=== PATIENT | male | born 2000 | race Caucasian/White ===

== ENCOUNTER → 2021-11-06 10:10 | Outpatient (BNVA) | payer OTHER, SELFPAY | PROVIDERS: Family Provider Family Medicine; Visit Provider Nurse Practitioner | DX: Z02.83 Encounter for blood-alcohol and blood-drug test (principal) | CPT/HCPCS: 80307 ==

== ENCOUNTER 2022-10-04 04:50 | Emergency (ER) | payer SELFPAY ==
[2022-10-04 04:55] VITALS: BMI 18.4
--- NOTE | 2022-10-04 04:57 | CTR_ITS ---
PROCEDURE INFORMATION: Exam: CT Abdomen And Pelvis With Contrast Exam date and time: 10/04/2022 5:11 AM Age: 22 years old Clinical indication: Abdominal pain; Generalized; Patient HX: N/v right; Additional info: Abd pain TECHNIQUE: Imaging protocol: Computed tomography of the abdomen and pelvis with contrast. Radiation optimization: All CT scans at this facility use at least one of these dose optimization techniques: automated exposure control; mA and/or kV adjustment per patient size (includes targeted exams where dose is matched to clinical indication); or iterative reconstruction. Contrast material: ONNI 350; Contrast volume: 100 ml; Contrast route: INTRAVENOUS (IV); COMPARISON: No relevant prior studies available. RADIATION DOSE METRICS: Total DLP (mGy-cm): 371.53 FINDINGS: Liver: Mild nonspecific periportal edema. Gallbladder and bile ducts: No acute abnormality. No calcified stones. No ductal dilation. Pancreas: No acute abnormality. No ductal dilation. Spleen: No acute abnormality. Adrenal glands: No significant or acute abnormality. Kidneys and ureters: No acute abnormality. No hydronephrosis. Stomach and bowel: Fluid and ingested contents within stomach. No disproportionate large or small bowel distention. Fluid within distal small bowel with scattered small nonspecific air-fluid levels. Gas and stool within relatively nondistended colon. Appendix: Calcified appendicolith at the appendix base with 10 mm diameter abnormally dilated fluid-filled appendix. Intraperitoneal space: Nonspecific trace free fluid. No free air. Vasculature: No acute abnormality. No abdominal aortic aneurysm. Lymph nodes: Scattered small nonspecific mesenteric lymph nodes. Urinary bladder: Unremarkable as visualized. Reproductive: Unremarkable as visualized. Bones/joints: No acute osseous abnormality. No dislocation. Soft tissues: No significant soft tissue abnormalities. CT/CT abdomen pelvis w con* [id number] IMPRESSION: 1. Calcified appendicolith at the appendix base with 10 mm diameter abnormally dilated fluid-filled appendix. Findings are concerning for possible acute appendicitis. Recommend clinical correlation. 2. Mild reactive ileus versus enteritis. 3. Mild nonspecific periportal edema. Differential diagnosis includes reactive changes versus hepatitis or cholangitis. THIS REPORT CONTAINS FINDINGS THAT MAY BE CRITICAL TO PATIENT CARE. The findings were verbally communicated via telephone conference with Dr Herrera at 5:56 AM SENIOR MARKETING ASSOCIATE on 10/04/2022. The findings were acknowledged and understood.
[2022-10-04 04:59] VITALS: BP 112/93; PULSE 55; RESP 16; TEMP 36.6; O2SAT 100
--- NOTE | 2022-10-04 04:59 | ED_ITS ---
Documented by User: Yessenia Carter MD 10/04/22 05:02 HPI - Abdominal Pain General: Chief Complaint: Abdominal Pain Stated Complaint: abdomen pain Time Seen by Provider: 10/04/22 04:55 Source: patient Mode of arrival: ambulatory Limitations: no limitations History of Present Illness: 22-year-old male states he has been having nausea vomiting throughout the week he states that tonight he started having severe epigastric and right lower quadrant abdominal pain states pain is been an 8 out of 10. He denies any worsening proving factors denies any fevers denies any history abdominal surgery. He does use marijuana. Associated Symptoms: Reports nausea and vomiting; Denies chills, dysuria and fever(s) Review of Systems Const: Denies: fever(s), chills, body aches or change in appetite Eyes: Denies: blurry vision or eye discomfort ENMT: Denies: throat pain or dental pain Card: Denies: chest pain Resp: Denies: dyspnea GI: Reports: abdominal pain, nausea and vomiting : Denies: dysuria Musc: Denies: neck pain or back pain Skin/Breast: Denies: rash Neuro: Denies: headache(s) Psych: Denies: depression Shiva/Lymph: Denies: easy bruising All/Imm: Denies: urticaria PFSH ED PFSH: Medical History Attention-deficit hyperactivity disorder, predominantly inattentive type Generalized anxiety disorder Nicotine vapor product user Psychiatric care Social History Smoking and tobacco status: light tobacco smoker e-cigarettes E-Cigarette Details: vaporizer device and with nicotine E-cig/vape details: weaning off Quit status (tobacco): considering quitting Second hand smoke exposure: No Smoking risk assessment/counseling performed?: No Alcohol intake: current Alcohol intake frequency: holidays/special occasions only Alcohol type: wine Desire information about alcohol rehabilitation?: No Counseling given: No Desire information about substance/drug rehabilitation?: No Counseling given: No Physical Exam Const: COMMON NORMALS: no acute distress, patient oriented x3 and healthy appearing HENMT: COMMON NORMALS: normocephalic and atraumatic HEAD & SCALP: n ormocephalic and atraumatic Eye: COMMON NORMALS: Equal, round and reactive pupils present and EOMs intact bilaterally PUPIL: Yes Equal, round and reactive pupils present Neck/C-Spine: COMMON NORMALS: full ROM and supple Chest: COMMONS NORMALS: normal inspection of the chest and normal palpation of entire chest wall Resp: COMMON NORMALS: normal respiratory effort, No retractions, No use of accessory muscles and clear to auscultation bilaterally AUSCULTATION: clear to auscultation bilaterally Cardio: COMMON NORMALS: regular rate, regular rhythm and No murmurs present (Cardio) RATE: regular rate RHYTHM: regular rhythm GI: COMMON NORMALS: Normal to inspection, nondistended, normoactive bowel sounds present, Soft to palpation and no masses PALPATION: Yes Soft to palpation OTHER: rlq and epigastric tenderness Extremity: COMMON NORMALS: normal to inspection and full ROM Neuro: COMMON NORMALS: patient oriented x3, moves all extremities and no focal motor deficits Psych: COMMON NORMALS: mental status grossly normal, Normal thought process present and cooperative THOUGHT PROCESS: Normal thought process present Skin: COMMON NORMALS: no rashes or lesions noted and no wounds GENERAL SKIN EXAM: no rashes or lesions noted Course Vital Signs: Vital signs: Vital Signs Temperature 97.9 F 10/04/22 04:59 Pulse Rate 69 10/04/22 06:54 Respiratory Rate 16 10/04/22 06:54 Blood Pressure 132/79 10/04/22 06:54 Pulse Oximetry 99 10/04/22 06:54 Oxygen Delivery Me thod 10/04/22 06:54 MDM - Abdominal Pain Lab Data 10/04/22 05:02 10/04/22 05:02 Labs/Radiology: Radiology Impressions Abdomen/Pelvis CT 10/04/22 04:57 IMPRESSION: 1. Calcified appendicolith at the appendix base with 10 mm diameter abnormally dilated fluid-filled appendix. Findings are concerning for possible acute appendicitis. Recommend clinical correlation. 2. Mild reactive ileus versus enteritis. 3. Mild nonspecific periportal edema. Differential diagnosis includes reactive changes versus hepatitis or cholangitis. THIS REPORT CONTAINS FINDINGS THAT MAY BE CRITICAL TO PATIENT CARE. The findings were verbally communicated via telephone conference with Dr Herrera at 5:56 AM KIDS ACTIVITIES COACH on 10/04/2022. The findings were acknowledged and understood. Laboratory Results WBC 15.3 10^3/uL (4.0-10.0) H 10/04/22 05:02 RBC 5.02 10^6/uL (4.1-5.3) 10/04/22 05:02 Hgb 14.1 g/dL (11.7-16.6) 10/04/22 05:02 Hct 42.0 % (42.0-52.0) 10/04/22 05:02 MCV 83.7 fl (80-94) 10/04/22 05:02 MCH 28.1 pg (28.0-34.0) 10/04/22 05:02 MCHC 33.6 g/dL (30.0-36.0) 10/04/22 05:02 RDW 12.7 % (12.1-15.1) 10/04/22 05:02 Plt Count 335 10^3/cmm (130-400) 10/04/22 05:02 MPV 9.4 fL (7.4-10.4) 10/04/22 05:02 Neut % (Auto) 83.3 % 10/04/22 05:02 Lymph % (Auto) 10.7 % 10/04/22 05:02 [place] % (Auto) 3.9 % 10/04/22 05:02 Eos % (Auto) 1.3 % 10/04/22 05:02 Baso % (Auto) 0.5 % 10/04/22 05:02 Neut # (Auto) 12.75 10^3/uL (1.8-7.7) H 10/04/22 05:02 Lymph # (Auto) 1.6 10^3/uL (0.8-4.8) 10/04/22 05:02 [place] # (Auto) 0.6 10^3/uL (0.2-0.9) 10/04/22 05:02 Eos # (Auto) 0.2 10^3/uL (0.0-0.8) 10/04/22 05:02 Baso # (Auto) 0.1 10^3/uL (0.0-0.1) 10/04/22 05:02 Nucleated RBC % (auto) 0 % 10/04/22 05:02 Nucleated RBCs # 0.0 /100WBC 10/04/22 05:02 Sodium 133 mmol/L (136-145) L 10/04/22 05:02 Potassium 3.7 mmol/L (3.5-5.1) 10/04/22 05:02 Chloride 96 mmol/L (98-107) L 10/04/22 05:02 Carbon Dioxide 27 mmol/L (22-29) 10/04/22 05:02 Anion Gap 13.7 (5-19) 10/04/22 05:02 BUN 17 mg/dL (6-20) 10/04/22 05:02 Creatinine 0.7 mg/dL (0.7-1.2) 10/04/22 05:02 GFR Calculation 139.8 mL/min (90-130) H 10/04/22 05:02 Glucose 128 mg/dL (65-115) H 10/04/22 05:02 Calculated Osmolality 279 mOsm/kg (285-295) L 10/04/22 05:02 Calcium 9.9 mg/dL (8.5-10.5) 10/04/22 05:02 Total Bilirubin 0.4 mg/dL (0.15-1.2) 10/04/22 05:02 AST 18 U/L (0-40) 10/04/22 05:02 ALT 17 U/L (0-41) 10/04/22 05:02 Alkaline Phosphatase 67 U/L (40-130) 10/04/22 05:02 Total Protein 7.6 g/dL (6.6-8.7) 10/04/22 05:02 Albumin 4.8 g/dL (3.5-5.2) 10/04/22 05:02 Globulin 2.8 g/dL (1.3-4.6) 10/04/22 05:02 Lipase 34 U/L (13-60) 10/04/22 05:02 Discharge Plan Discharge Patient Disposition: Home Clinical Impression: Abdominal pain, Mesenteric lymphadenitis, Gastroenteritis Condition: Stable Prescriptions: New ondansetron HCl 4 mg tablet 4 mg PO Q6H PRN (Reason: nausea and vomiting) Qty: 20 0RF amoxicillin-pot clavulanate 875-125 mg tablet 1 tab PO BID Qty: 14 0RF No Action dextroamphetamine-amphetamine [Adderall XR] 20 mg capsule,extended release 24hr 20 mg PO DAILY 30 Days Qty: 30 0RF sertraline [Zoloft] 50 mg tablet 50 mg PO DAILY Qty: 30 2RF dextroamphetamine-amphetamine [Adderall XR] 20 mg capsule,extended release 24hr 20 mg PO DAILY 30 Days Qty: 30 0RF dextroamphetamine-amphetamine [Adderall XR] 20 mg capsule,extended release 24hr 20 mg PO DAILY 30 Days Qty: 30 0RF Discharge Orders: Discharge ED (Routine); Ordered 10/04/22 Ordered By: Javier Herrera Patient Instructions: Appendicitis (GEN), Opioid Safety, Pain Management, Abdominal Pain (ED) Activity Restrictions/Additional Instructions: You are seen in the emergency room for abdominal pain CT showed calcification in the appendix. General surgeon was consulted and reviewed here CT as well as examined you and did not feel that this is acute appendicitis at this time. He is recommending that we discharge you home with Augmentin twice daily for 7 days, antiemetics as needed. Clear liquid diet for next 24 to 48 hours and advance as tolerated. If your symptoms worsen return to the emergency room. Coding Level of Care Code ED Sales And Marketing Assistant for Chg Fwd Exam Comprehensive Documented by User: Javier Herrera DO 10/04/22 06:58 HPI - Abdominal Pain General: Chief Complaint: Abdominal Pain Stated Complaint: abdomen pain Time Seen by Provider: 10/04/22 04:55 PFSH ED PFSH: Medical History Attention-deficit hyperactivity disorder, predominantly inattentive type Generalized anxiety disorder Nicotine vapor product user Psychiatric care Social History Smoking and tobacco status: light tobacco smoker e-cigarettes E-Cigarette Details: vaporizer device and with nicotine E-cig/vape details: weaning off Quit status (tobacco): considering quitting Second hand smoke exposure: No Smoking risk assessment/counseling performed?: No Alcohol intake: current Alcohol intake frequency: holidays/special occasions only Alcohol type: wine Desire information about alcohol rehabilitation?: No Counseling given: No Desire information about substance/drug rehabilitation?: No Counseling given: No Course Vital Signs: Vital signs: Vital Signs Temperature 97.9 F 10/04/22 04:59 Pulse Rate 69 10/04/22 06:54 Respiratory Rate 16 10/04/22 06:54 Blood Pressure 132/79 10/04/22 06:54 Pulse Oximetry 99 10/04/22 06:54 Oxygen Delivery Me thod 10/04/22 06:54 MDM - Abdominal Pain Medical Decision Making Care assumed at change of shift from Dr. Carter. White count 15,000 there is a suspicion for acute appendicitis on the CT. Reexamined patient does have point tenderness with rebound at McBurney's point with early peritoneal signs. Discussed Dr. Booker he will see the patient in the emergency room he has been started on IV antibiotics kept n.p.o. and initiate maintenance IV fluids. Dr. Booker is seen the patient in the emergency room he does not feel that this is an acute appendicitis feels more likely to be a viral gastroenteritis/mesenteric lymphadenitis. Dr. Booker recommends discharge patient home on Augmentin and antiemetics return if has worsening problems. Medical Records I reviewed the patient's medical records. Lab Data I reviewed the patient's lab results. 10/04/22 05:02 10/04/22 05:02 Labs/Radiology: Radiology Impressions Abdomen/Pelvis CT 10/04/22 04:57 IMPRESSION: 1. Calcified appendicolith at the appendix base with 10 mm diameter abnormally dilated fluid-filled appendix. Findings are concerning for possible acute appendicitis. Recommend clinical correlation. 2. Mild reactive ileus versus enteritis. 3. Mild nonspecific periportal edema. Differential diagnosis includes reactive changes versus hepatitis or cholangitis. THIS REPORT CONTAINS FINDINGS THAT MAY BE CRITICAL TO PATIENT CARE. The findings were verbally communicated via telephone conference with Dr Herrera at 5:56 AM KIDS ACTIVITIES COACH on 10/04/2022. The findings were acknowledged and understood. Laboratory Results WBC 15.3 10^3/uL (4.0-10.0) H 10/04/22 05:02 RBC 5.02 10^6/uL (4.1-5.3) 10/04/22 05:02 Hgb 14.1 g/dL (11.7-16.6) 10/04/22 05:02 Hct 42.0 % (42.0-52.0) 10/04/22 05:02 MCV 83.7 fl (80-94) 10/04/22 05:02 MCH 28.1 pg (28.0-34.0) 10/04/22 05:02 MCHC 33.6 g/dL (30.0-36.0) 10/04/22 05:02 RDW 12.7 % (12.1-15.1) 10/04/22 05:02 Plt Count 335 10^3/cmm (130-400) 10/04/22 05:02 MPV 9.4 fL (7.4-10.4) 10/04/22 05:02 Neut % (Auto) 83.3 % 10/04/22 05:02 Lymph % (Auto) 10.7 % 10/04/22 05:02 [place] % (Auto) 3.9 % 10/04/22 05:02 Eos % (Auto) 1.3 % 10/04/22 05:02 Baso % (Auto) 0.5 % 10/04/22 05:02 Neut # (Auto) 12.75 10^3/uL (1.8-7.7) H 10/04/22 05:02 Lymph # (Auto) 1.6 10^3/uL (0.8-4.8) 10/04/22 05:02 [place] # (Auto) 0.6 10^3/uL (0.2-0.9) 10/04/22 05:02 Eos # (Auto) 0.2 10^3/uL (0.0-0.8) 10/04/22 05:02 Baso # (Auto) 0.1 10^3/uL (0.0-0.1) 10/04/22 05:02 Nucleated RBC % (auto) 0 % 10/04/22 05:02 Nucleated RBCs # 0.0 /100WBC 10/04/22 05:02 Sodium 133 mmol/L (136-145) L 10/04/22 05:02 Potassium 3.7 mmol/L (3.5-5.1) 10/04/22 05:02 Chloride 96 mmol/L (98-107) L 10/04/22 05:02 Carbon Dioxide 27 mmol/L (22-29) 10/04/22 05:02 Anion Gap 13.7 (5-19) 10/04/22 05:02 BUN 17 mg/dL (6-20) 10/04/22 05:02 Creatinine 0.7 mg/dL (0.7-1.2) 10/04/22 05:02 GFR Calculation 139.8 mL/min (90-130) H 10/04/22 05:02 Glucose 128 mg/dL (65-115) H 10/04/22 05:02 Calculated Osmolality 279 mOsm/kg (285-295) L 10/04/22 05:02 Calcium 9.9 mg/dL (8.5-10.5) 10/04/22 05:02 Total Bilirubin 0.4 mg/dL (0.15-1.2) 10/04/22 05:02 AST 18 U/L (0-40) 10/04/22 05:02 ALT 17 U/L (0-41) 10/04/22 05:02 Alkaline Phosphatase 67 U/L (40-130) 10/04/22 05:02 Total Protein 7.6 g/dL (6.6-8.7) 10/04/22 05:02 Albumin 4.8 g/dL (3.5-5.2) 10/04/22 05:02 Globulin 2.8 g/dL (1.3-4.6) 10/04/22 05:02 Lipase 34 U/L (13-60) 10/04/22 05:02 Discharge Plan Discharge Patient Disposition: Home Clinical Impression: Abdominal pain, Mesenteric lymphadenitis, Gastroenteritis Condition: Stable Prescriptions: New ondansetron HCl 4 mg tablet 4 mg PO Q6H PRN (Reason: nausea and vomiting) Qty: 20 0RF amoxicillin-pot clavulanate 875-125 mg tablet 1 tab PO BID Qty: 14 0RF No Action dextroamphetamine-amphetamine [Adderall XR] 20 mg capsule,extended release 24hr 20 mg PO DAILY 30 Days Qty: 30 0RF sertraline [Zoloft] 50 mg tablet 50 mg PO DAILY Qty: 30 2RF dextroamphetamine-amphetamine [Adderall XR] 20 mg capsule,extended release 24hr 20 mg PO DAILY 30 Days Qty: 30 0RF dextroamphetamine-amphetamine [Adderall XR] 20 mg capsule,extended release 24hr 20 mg PO DAILY 30 Days Qty: 30 0RF Discharge Orders: Discharge ED (Routine); Ordered 10/04/22 Ordered By: Javier Herrera Patient Instructions: Appendicitis (GEN), Opioid Safety, Pain Management, Abdominal Pain (ED) Activity Restrictions/Additional Instructions: You are seen in the emergency room for abdominal pain CT showed calcification in the appendix. General surgeon was consulted and reviewed here CT as well as examined you and did not feel that this is acute appendicitis at this time. He is recommending that we discharge you home with Augmentin twice daily for 7 d ays, antiemetics as needed. Clear liquid diet for next 24 to 48 hours and advance as tolerated. If your symptoms worsen return to the emergency room. Coding Level of Care Code ED Sales And Marketing Assistant for Gini Rivas Exam Comprehensive
[2022-10-04 05:09] LABS: Basophils # 0.1 10^3/uL (0.0-0.1); Basophils % 0.5 %; Eosinophils # 0.2 10^3/uL (0.0-0.8); Eosinophils % 1.3 %; Hemoglobin 14.1 g/dL (11.7-16.6); Lymphocytes # 1.6 10^3/uL (0.8-4.8); Lymphocytes % 10.7 %; Mean Corpuscular HGB Conc 33.6 g/dL (30.0-36.0); Mean Corpuscular Hemoglobin 28.1 pg (28.0-34.0); Mean Corpuscular Volume 83.7 fl (80-94); Mean Platelet Volume 9.4 fL (7.4-10.4); Monocytes # 0.6 10^3/uL (0.2-0.9); Monocytes % 3.9 %; Neutrophils # 12.75 10^3/uL (1.8-7.7); Neutrophils % 83.3 %; Nucleated Red Blood Cells % 0 %; Platelet Count 335 10^3/cmm (130-400); Red Blood Count 5.02 10^6/uL (4.1-5.3); Red Cell Distribution Width 12.7 % (12.1-15.1); White Blood Count 15.3 10^3/uL (4.0-10.0)
[2022-10-04] MEDS: iohexol 350 mg/mL 500 mL Btl (per mL) IV (05:15)
[2022-10-04] MEDS: sodium chloride 0.9% 1,000 ML 999 ML IV (05:24)
[2022-10-04] MEDS: ondansetron 2 mg/ML SDV 2 mL 4 MG IVP (05:27)
[2022-10-04] MEDS: HYDROmorphone 1 mg/mL INJ 1 mL 0.5 MG IVP (05:28)
[2022-10-04 05:30] VITALS: BP 142/81; PULSE 55; RESP 16; O2SAT 98
[2022-10-04 05:32] LABS: Alanine Aminotransferase 17 U/L (0-41); Albumin Level 4.8 g/dL (3.5-5.2); Alkaline Phosphatase 67 U/L (40-130); Anion Gap 13.7 (5-19); Aspartate Amino Transferase 18 U/L (0-40); Blood Urea Nitrogen 17 mg/dL (6-20); Calcium 9.9 mg/dL (8.5-10.5); Carbon Dioxide 27 mmol/L (22-29); Chloride 96 mmol/L (98-107); Globulin 2.8 g/dL (1.3-4.6); Glomerular Filtration Rate 139.8 mL/min (90-130); Glucose 128 mg/dL (65-115); Lipase 34 U/L (13-60); Osmolality Calculated 279 mOsm/kg (285-295); Potassium 3.7 mmol/L (3.5-5.1); Sodium 133 mmol/L (136-145); Total Bilirubin 0.4 mg/dL (0.15-1.2); Total Protein 7.6 g/dL (6.6-8.7)
[2022-10-04] MEDS: piperacillin-tazobactam 4.5 GM in sodium chloride 0.9% (plus) 50 ML IV (06:35)
[2022-10-04] MEDS: sodium chlor 0.9% + KCl 20 mEq 20 MEQ/1,000 ML BAG 125 MEQ IV (06:51)
[2022-10-04 06:54] VITALS: BP 132/79; PULSE 69; RESP 16; O2SAT 99
[2022-10-04 07:14] VITALS: BP 104/60; PULSE 57; O2SAT 98
== END 2022-10-04 07:16 | disposition home or self-care (01) ==
PROVIDERS: Emergency Medicine; Emergency Provider Family Medicine
DX: I88.0 Nonspecific mesenteric lymphadenitis (principal); F17.290 Nicotine dependence, other tobacco product, uncomplicated
CPT/HCPCS: 74177; 80053; 83690; 85025; 96365; 96375; 99285; J1170; J2405; J2543; J3480; J7030; Q9967

== ENCOUNTER 2022-11-19 13:21 | Emergency (ER) | payer SELFPAY ==
[2022-11-19 13:27] VITALS: BP 138/63; PULSE 83; RESP 16; TEMP 36.8; O2SAT 99
[2022-11-19 14:44] LABS: Basophils # 0.1 10^3/uL (0.0-0.1); Basophils % 0.7 %; Eosinophils # 0.2 10^3/uL (0.0-0.8); Eosinophils % 2.2 %; Hematocrit 41.2 % (42.0-52.0); Hemoglobin 13.3 g/dL (11.7-16.6); Lymphocytes # 1.3 10^3/uL (0.8-4.8); Lymphocytes % 14.4 %; Mean Corpuscular HGB Conc 32.3 g/dL (30.0-36.0); Mean Corpuscular Hemoglobin 27.2 pg (28.0-34.0); Mean Corpuscular Volume 84.3 fl (80-94); Mean Platelet Volume 9.7 fL (7.4-10.4); Monocytes # 0.5 10^3/uL (0.2-0.9); Monocytes % 5.6 %; Neutrophils # 6.76 10^3/uL (1.8-7.7); Neutrophils % 76.9 %; Nucleated Red Blood Cells % 0 %; Platelet Count 316 10^3/cmm (130-400); Red Blood Count 4.89 10^6/uL (4.1-5.3); Red Cell Distribution Width 13.1 % (12.1-15.1); White Blood Count 8.8 10^3/uL (4.0-10.0)
[2022-11-19 15:03] LABS: Alanine Aminotransferase 14 U/L (0-41); Albumin Level 4.4 g/dL (3.5-5.2); Alkaline Phosphatase 73 U/L (40-130); Anion Gap 12.9 (5-19); Aspartate Amino Transferase 14 U/L (0-40); Blood Urea Nitrogen 13 mg/dL (6-20); Calcium 9.3 mg/dL (8.5-10.5); Carbon Dioxide 28 mmol/L (22-29); Chloride 103 mmol/L (98-107); Creatinine Clr Calc Pharmacy 152.6827; Globulin 2.8 g/dL (1.3-4.6); Glomerular Filtration Rate 139.8 mL/min (90-130); Glucose 107 mg/dL (65-115); Lipase 28 U/L (13-60); Osmolality Calculated 291 mOsm/kg (285-295); Potassium 3.9 mmol/L (3.5-5.1); Sodium 140 mmol/L (136-145); Total Bilirubin 0.3 mg/dL (0.15-1.2); Total Protein 7.2 g/dL (6.6-8.7)
--- NOTE | 2022-11-19 15:07 | CT_ITS ---
WS: [id number] CT ABDOMEN AND PELVIS NONCONTRAST HISTORY: abdominal pain-periumbilical TECHNIQUE: Imaging performed through the abdomen and pelvis. Coronal and sagittal reformats are submi tted. All CT scans at [facility] use at least one of these dose optimization techniques: auto mated exposure control; mA and/or kV adjustment per patient size (includes targeted exams where dose is matched to clinical indication); or iterative reconstruction. DLP: 353.73 mGy.cm COMPARISON: 10/04/2022 Lower thorax: Lung bases are clear. Visualized heart is normal. No hiatal hernia. Liver: Normal size liver. No mass or bile duct dilatation. Gallbladder: Normal gallbladder. Pancreas: Very poorly visualized. Spleen: Normal. Adrenal glands: Normal. No mass. Right kidney: Normal size kidney with no mass or hydronephrosis. Left kidney: Normal size kidney with no mass or hydronephrosis. Aorta: Normal abdominal aorta, no aneurysm or atherosclerosis. Lymph nodes are difficult to exclude as there is very little fat the visceral structures a nd lack of contrast. GI tract: Stomach is moderately distended with food products. There is increased density in the stoma ch which is probably medicinal or food product. There is no obstruction identified. Mild constipation . By history the appendix has been removed. Abdominal wall: Negative. No hernia. Pelvis: Urinary bladder is well distended. There may be a small amount of free fluid in the pelvis wh ich would be abnormal for a male patient. Osseous structures: Unremarkable. CT/CT abdomen pelvis wo con [id number] IMPRESSION: 1. Technically very limited and difficult evaluation of the visceral organs wi thout IV and oral contrast. There is very little fat the loops of GI tract. 2. By history prior appendectomy. 3. There may be a very small amount of free fluid in the pelvis. This would be abnormal in a male patient. If this is free fluid on determined etiology. 4. Moderate fluid distention of the stomach.
--- NOTE | 2022-11-19 15:08 | ED_ITS ---
HPI - Abdominal Pain General: Chief Complaint: Abdominal Pain Stated Complaint: Abd pain Time Seen by Provider: 11/19/22 14:44 History of Present Illness: Patient is a 22-year-old male comes to the ED with abdominal pain. Approximately a little over 1 month ago patient had an appende ctomy. Symptoms started last night and were located in the periumbilical and right side of the abdomen. He rated the pain a 10 out of 10 at that time and says it felt a lot like his appendicitis from a month ago. He was concerned that potentially he developed some kind of postsurgical complication. Here in the ED patient says his abdominal pain has completely resolved. He has been having normal daily bowel movements. He describes feeling sick to his stomach, but denies any nausea or vomiting and is keeping food and fluids down. Denies any fevers, blood in the stool, constipation, diarrhea, dysuria or hematuria. Associated Symptoms: Denies chills, constipation, diarrhea, dysuria, fever(s), hematochezia, hematuria, nausea and vomiting Review of Systems Const: Denies: fever(s), chills or fatigue Eyes: Denies: change in vision or eye discomfort ENMT: Denies: throat pain, odynophagia, nasal discharge or nasal congestion Card: Denies: chest pain, palpitations, edema, swelling of feet/ankles, dyspnea on exertion or orthopnea Resp: Denies: dyspnea, productive cough or non-productive cough GI: Reports: abdominal pain; Denies: nausea, vomiting, diarrhea, constipation or hematochezia : Denies: flank pain, difficulty urinating, dysuria or hematuria Musc: Denies: neck pain, back pain or extremity swelling Skin/Breast: Denies: rash or new lesions Neuro: Denies: headache(s), numbness in extremities or weakness in extremities PFS ED PFSH: Medical History Attention-deficit hyperactivity disorder, predominantly inattentive type Generalized anxiety disorder Nicotine vapor product user Psychiatric care Social History Smoking and tobacco status: light tobacco smoker e-cigarettes E-Cigarette Details: vaporizer device and with nicotine E-cig/vape details: weaning off Quit status (tobacco): considering quitting Second hand smoke exposure: No Smoking risk assessment/counseling performed?: No Alcohol intake: current Alcohol intake frequency: holidays/special occasions only Alcohol type: wine Desire information about alcohol rehabilitation?: No Counseling given: No Desire information about substance/drug rehabilitation?: No Counseling given: No Physical Exam Const: COMMON NORMALS: patient oriented x3 HENMT: COMMON NORMALS: normocephalic HEAD & SCALP: normocephalic MOUTH: Normal oral and palatal mucosa present THROAT: posterior oropharynx normal and uvula midline Neck/C-Spine: COMMON NORMALS: supple GENERAL: Yes normal visual inspection Resp: COMMON NORMALS: normal respiratory effort, No retractions, No use of accessory muscles and clear to auscultation bilaterally AUSCULTATION: clear to auscultation bilaterally Cardio: COMMON NORMALS: regular rate, regular rhythm, S1 normal heart sound present, S2 normal heart sound present, No gallops present (Cardio), No clicks present (Cardio), No murmurs present (Cardio) and Peripheral pulses 2+ throughout RATE: regular rate RHYTHM: regular rhythm HEART SOUNDS: S1 normal heart sound present and S2 normal heart sound present PERIPHERAL PULSES: Peripheral pulses 2+ throughout OTHER: Very mild tenderness around periumbilical region. No acute abdomen exam findings. GI: COMMON NORMALS: Normal to inspection, nondistended, normoactive bowel sounds present, Soft to palpation and no masses PALPATION: Yes Soft to palpation and Yes Tenderness to palpation present (GI) (Mild periumbilical t enderness) : COMMON NORMALS: Yes no CVA tenderness BLADDER/KIDNEY EXAM: Yes no CVA tenderness Back/Pelvis: COMMON NORMALS: no CVA tenderness Extremity: COMMON NORMALS: normal to inspection Neuro: COMMON NORMALS: patient oriented x3 GAIT: Yes Normal gait present Skin: GENERAL SKIN EXAM: dry skin Course Vital Signs: Vital signs: Vital Signs Temperature 98.2 F 11/19/22 13:27 Pulse Rate 76 11/19/22 15:58 Respiratory Rate 14 11/19/22 15:58 Blood Pressure 118/71 11/19/22 15:58 Pulse Oximetry 99 11/19/22 15:58 Oxygen Delivery Me thod 11/19/22 13:27 MDM - Abdominal Pain Medical Decision Making Patient is a 22-year-old male comes to the ED with abdominal pain. Approximately a little over 1 month ago patient had an appendectomy. Symptoms started last night and were located in the periumbilical and right side of the abdomen. He rated the pain a 10 out of 10 at that time and says it felt a lot like his appendicitis from a month ago. He was concerned that potentially he developed some kind of postsurgical complication. Denies any fevers, nausea/vomiting. He states that his abdominal pain has resolved here in the ED. Vitals are stable. Patient is a healthy nontoxic-appearing 22-year-old male in no acute distress or pain. He has some mild periumbilical tenderness but no other signs of an acute abdomen. Labs are all unremarkable. CT of abdomen pelvis shows no acute findings. Patient is stable for discharge home and diagnosed with abdominal pain. He was told to follow-up with his PCP in the next 5 to 7 days for reevaluation. Strict return to ED precautions given. Patient understood and agreed with plan. Lab Data I reviewed the patient's lab results. 11/19/22 14:27 11/19/22 14:27 Labs/Radiology: Radiology Impressions Abdomen/Pelvis CT 11/19/22 15:07 IMPRESSION: 1. Technically very limited and difficult evaluation of the visceral organs without IV and oral contrast. There is very little fat the loops of GI tract. 2. By history prior appendectomy. 3. There may be a very small amount of free fluid in the pelvis. This would be abnormal in a male patient. If this is free fluid on determined etiology. 4. Moderate fluid distention of the stomach. Laboratory Results WBC 8.8 10^3/uL (4.0-10.0) 11/19/22 14: RBC 4.89 10^6/uL (4.1-5.3) 11/19/22 14: Hgb 13.3 g/dL (11.7-16.6) 11/19/22 14: Hct 41.2 % (42.0-52.0) L 11/19/22: MCV 84.3 fl (80-94) 11/19/22 14: MCH 27.2 pg (28.0-34.0) L 11/19/22 14: MCHC 32.3 g/dL (30.0-36.0) 11/19/22 14: RDW 13.1 % (12.1-15.1) 11/19/22 14:27 Plt Count 316 10^3/cmm (130-400) 11/19/22 14:27 MPV 9.7 fL (7.4-10.4) 11/19/22 14:27 Neut % (Auto) 76.9 % 11/19/22 14:27 Lymph % (Auto) 14.4 % 11/19/22 14:27 Mower % (Auto) 5.6 % 11/19/22 14:27 Eos % (Auto) 2.2 % 11/19/22 14:27 Baso % (Auto) 0.7 % 11/19/22 14:27 Neut # (Auto) 6.76 10^3/uL (1.8-7.7) 11/19/22 14:27 Lymph # (Auto) 1.3 10^3/uL (0.8-4.8) 11/19/22 14:27 Mower # (Auto) 0.5 10^3/uL (0.2-0.9) 11/19/22 14:27 Eos # (Auto) 0.2 10^3/uL (0.0-0.8) 11/19/22 14:27 Baso # (Auto) 0.1 10^3/uL (0.0-0.1) 11/19/22 14:27 Nucleated RBC % (auto) 0 % 11/19/22 14: Nucleated RBCs # 0.0 /100WBC 11/19/22 14:27 Sodium 140 mmol/L (136-145) 11/19/22 14:27 Potassium 3.9 mmol/L (3.5-5.1) 11/19/22 14:27 Chloride 103 mmol/L (98-107) 11/19/22 14:27 Carbon Dioxide 28 mmol/L (22-29) 11/19/22 14:27 Anion Gap 12.9 (5-19) 11/19/22 14:27 BUN 13 mg/dL (6-20) 11/19/22 14:27 Creatinine 0.7 mg/dL (0.7-1.2) 11/19/22 14:27 GFR Calculation 139.8 mL/min (90-130) H 11/19/22 14:27 Glucose 107 mg/dL (65-115) 11/19/22 14:27 Calculated Osmolality 291 mOsm/kg (285-295) 11/19/22 14:27 Calcium 9.3 mg/dL (8.5-10.5) 11/19/22 14:27 Total Bilirubin 0.3 mg/dL (0.15-1.2) 11/19/22 14:27 AST 14 U/L (0-40) 11/19/22 14:27 ALT 14 U/L (0-41) 11/19/22 14:27 Alkaline Phosphatase 73 U/L (40-130) 11/19/22 14:27 Total Protein 7.2 g/dL (6.6-8.7) 11/19/22 14:27 Albumin 4.4 g/dL (3.5-5.2) 11/19/22 14:27 Globulin 2.8 g/dL (1.3-4.6) 11/19/22 14:27 Lipase 28 U/L (13-60) 11/19/22 14:27 Discharge Plan Discharge Patient Disposition: Home Clinical Impression: Abdominal pain Qualifiers: Abdominal location: generalized Qualified Code(s): R10.84 - Generalized abdominal pain Condition: Stable Prescriptions: No Action dextroamphetamine-amphetamine [Adderall XR] 20 mg capsule,extended release 24hr 20 mg PO DAILY 30 Days Qty: 30 0RF sertraline [Zoloft] 50 mg tablet 50 mg PO DAILY Qty: 30 2RF dextroamphetamine-amphetamine [Adderall XR] 20 mg capsule,extended release 24hr 20 mg PO DAILY 30 Days Qty: 30 0RF dextroamphetamine-amphetamine [Adderall XR] 20 mg capsule,extended release 24hr 20 mg PO DAILY 30 Days Qty: 30 0RF ondansetron HCl 4 mg tablet 4 mg PO Q6H PRN (Reason: nausea and vomiting) Qty: 20 0RF amoxicillin-pot clavulanate 875-125 mg tablet 1 tab PO BID Qty: 14 0RF Discharge Orders: Discharge ED (Routine); Ordered 11/19/22 Ordered By: Toan Causey Discharge Diet: Regular Discharge Activity: Resume usual activity Patient Instructions: Abdominal Pain (ED) Activity Restrictions/Additional Instructions: Follow-up with medical provider as directed in the next 5 to 7 days for reevaluation. Continue taking all home medications as previously prescribed. Return to the ER or your medical provider if condition worsens. Please read and understand discharge instructions. Thank you for choosing [facility] for your healthcare needs today. Please realize this is an emergency room and that we are providing you with a medical screening exam and this may not be complete and all inclusive of all the testing and or work up that you may need to determine your ailment or severity of your illness. It is very important that you follow up as instructed or that you return to the Emergency Department should you have concerns or if your condition changes or worsens in any way. Coding Level of Care Code ED Corporate Paralegal for Gini Rivas
[2022-11-19 15:58] VITALS: BP 118/71; PULSE 76; RESP 14; O2SAT 99
--- NOTE | 2022-11-25 14:19 | DCPLANNER ---
Addendum entered by Claudia Whitten 11/25/22 14:20: asset manager called patient due to no primary care physician. asset manager called phone number [phone]. asset manager left a voicemail for patient to return trimming caser phone call. Original Note: 11.24.22 - TCM called patient due to no primary care physician - no answer at this time
== END 2022-11-19 15:59 | disposition home or self-care (01) ==
PROVIDERS: Emergency Provider Physician Assistant
DX: R10.84 Generalized abdominal pain (principal); F17.290 Nicotine dependence, other tobacco product, uncomplicated
CPT/HCPCS: 36415; 74176; 80053; 83690; 85025; 99284